=== PATIENT | male | born 2000 | race African-American/Black ===

== ENCOUNTER 2023-09-16 10:20 | Emergency (ER) | payer SELFPAY ==
[2023-09-16 10:37] VITALS: BP 122/66; PULSE 79; RESP 16; TEMP 37.3; O2SAT 98; BMI 26.6
--- NOTE | 2023-09-16 10:56 | ED_ITS ---
HPI - General Adult General Date Seen: 09/16/23 Chief complaint: Extremity Pain/Injury, Upper Stated complaint: RT wrist swelling Time Seen by Provider: 09/16/23 10:53 History of Present Illness HPI narrative: 23-year-old generally healthy male presenting to the ER today with right wrist redness and swelling. In review of medical record he was seen in the urgent care 6 days ago on 07/11/2023 with a left wrist sprain after he sprained his wrist playing soccer. He is otherwise healthy. No history of diabetes or immunosuppression. He is not currently sexually active and has not had sexual activity in over a year. His previous sexual activities with was with a faithful partner. He is has no concern for STD such as gonorrhea or HIV. He notes that five days ago, last Friday he started developing a small pimple on the skin of the radial border along his right wrist. It did get a little bit larger in began draining some purulent fluid that evening. It seemed to get better but was still slightly swollen but no longer draining the following day on Friday and again on Friday. Yesterday on Friday it began to get more swollen again it started draining some more pus. He started to have a low-grade fever. He has wrist feels a little bit achy but he is not having any trouble moving it any overnight developed swelling involving the dorsum of his hand and some discomfort radiating up to his elbow (but no redness or swelling of the proximal portion of the forearm or of the elbow. He he is concerned that he probably has a skin infection so came here to get started on antibiotics. He has no recent injury to his right wrist. No foreign body. No picking. No dog bites. No current sexual activity. No concern for STI. No diabetes or immunosuppression. Related Data Home Medications ?Medication ?Instructions ?Recorded ?Confirmed No Known Home Medications 07/11/23 07/11/23 Allergies Allergy/AdvReac Type Severity Reaction Status Date / Time No Known Drug Allergies Allergy Verified 07/11/23 13:44 [facility] Social History Smoking Status: Never smoker Do you use any of these nicotine containing products: None How often do you have a drink containing alcohol: never How often do you have six or more drinks on one occasion: Never AUDIT-C Alcohol total score: 0 Non-prescribed substance use: denies use Exam Narrative: Exam Narrative: Constitutional: Appears well-developed and well-nourished. Active. Non-toxic appearing. HENT: Head: Atraumatic. No signs of injury. Nose: No nasal discharge. Mouth/Throat: Mucous membranes are moist. Pharynx is normal. Tonsils symmetric. Uvula midline. Airway patent. Eyes: Conjunctivae normal and EOM are normal. Pupils are equal, round, and reactive to light. Right eye exhibits no discharge. Left eye exhibits no discharge. No icterus. Neck: Normal range of motion. Neck supple. No adenopathy. No stridor. Cardiovascular: Normal rate and regular rhythm. No murmur heard. No murmurs, rubs, or gallops. Brisk capillary refill Pulmonary/Chest: Effort normal. No stridor. No respiratory distress. No wheezes.No rhonchi. No rales. No retractions. Abdominal: Soft. Bowel sounds are normal. No distension. No mass. There is no tenderness. There is no rebound and no guarding. Musculoskeletal: Left upper extremity and bilateral lower extremities: Normal range of motion. No edema. No tenderness. No deformity. Right upper extremity: Shoulder, biceps, triceps, upper arm are normal. There is no palpable axillary adenopathy. No signs of redness or swelling or ascending lymphangitis in the upper arm or proximal forearm. Normal flexion and extension of the elbow. Normal pronation and supination of the wrist. He does have normal range of motion in the wrist. There is a visible area of swelling on the dorsal wrist and dorsal hand. Intact flexion and extension of MCP, PIP, DI P joints of the fingers as well as the thumb. Volar surface and palmar surface are normal. Inspection of the wrist reveals that he has a 2 cm area of soft tissue swelling and induration surrounding a small punctate 1 mm area that is draining a small amount of purulent fluid. When I carefully palpate the swollen area it feels indurated but there is no fluctuance. The open lesion is draining very small amounts of yellow/Jett cloudy serous fluid (but not francisco pus). I do not think there is any palpable fluctuance that would benefit from I&D. It appears that whatever fluid was in this pocket has already been draining through the lesion on the skin. Surrounding this there is a larger area of swollen tissue including the dorsum of the hand and the dorsum of the wrist. Neurological: Alert. Normal strength. No cranial nerve deficit or sensory deficit. Coordination normal. GCS eye subscore is 4. GCS verbal subscore is 5. GCS motor subscore is 6. Skin: Skin is warm. No rash noted. Const: Vital Signs, click to edit/add: Vital Signs - 24 hr 09/16/23 10:37 Temperature 99.1 F Pulse Rate [Pulse Oximeter] 79 Respiratory Rate 16 Blood Pressure [Ri ght Upper Arm] 122/66 Pulse Oximetry 98 Oxygen Delivery Me thod Room Air Course Vital Signs Vital signs: Initial Vital Signs Temperature 99.1 F 09/16/23 10:37 Temperature Source Temporal Artery Scan 09/16/23 10:37 Pulse Rate 79 09/16/23 10:37 Pulse Rhythm Regular 09/16/23 10:37 Respiratory Rate 16 09/16/23 10:37 Blood Pressure 122/66 09/16/23 10:37 Blood Pressure Mean 84 09/16/23 10:37 Blood Pressure Position Sitting 09/16/23 10:37 Pulse Oximetry 98 09/16/23 10:37 Oxygen Delivery Method Room Air 09/16/23 10:37 Vital Signs Temperature 99.1 F 09/16/23 10:37 Pulse Rate 79 09/16/23 10:37 Respiratory Rate 16 09/16/23 10:37 Blood Pressure 122/66 09/16/23 10:37 Pulse Oximetry 98 09/16/23 10:37 Oxygen Delivery Method Room Air 09/16/23 10:37 Temperature 99.1 F 09/16/23 10:37 Pulse Rate 79 09/16/23 10:37 Respiratory Rate 16 09/16/23 10:37 Blood Pressure 122/66 09/16/23 10:37 Pulse Oximetry 98 09/16/23 10:37 Oxygen Delivery Method Room Air 09/16/23 10:37 Medical Decision Making MDM Narrative Medical decision making narrative: This patient presents for evaluation of skin redness and swelling affecting the skin on the dorsum of his right wrist and hand. It actually began as a small pimple on the dorsal/radial aspect of the wrist 5 days ago which has been draining some cloudy serous/purulent fluid initially on Friday and again since yesterday. History and exam are consistent with what appears to be a cutaneous abscess and surrounding cellulitis. At this point I do not think there is any residual purulent fluid under the skin that would benefit from I and D at this time. It appears to already be draining. After sterile prep with chlorhexidine I was able to get a very small amount of the fluid onto a culture swab. We sent swab to the lab for wound culture. There do not appear at this time to be any complication of cellulitis including necrotizing fascitis, lymphangitis, lymphadenitis, osteomyelitis, sepsis, or shock. He since this is on the dorsal/radial wrist and hand differential would include septic arthritis. However he has very good range of motion in the wrist. At this point I think he is actually very low risk for septic arthritis and any attempt at joint aspiration would be risky because we would have to approach through the infected/cellulitic superficial skin. The patient is not immunosuppressed or diabetic. Differential would also include disseminated gonococcus and gonococcal arthritis but patient has no concern for STI. Therefore will hold off on STI testing for now. Supportive outpatient management is indicated with antibiotics. Will put him on double coverage with Bactrim and Keflex. I i nitially obtained wound culture swab and we sent it to the lab. Unfortunately I obtained a swab on the wrong collection device and the culture cannot be run. Before I discovered the error, the patient already been discharged. He does not currently have primary care. Referral given to follow-up with the [facility] (or return to the ER) if not improving within 2-3 days, or immediately if worsening. given precautions to return if high fever, spread greater than 2cm outside of the current area, worsening pain, vomiting or any other worsening. Questions answered and return precautions reviewed. Discharge Plan Discharge Clinical Impression: Abscess or cellulitis of wrist Patient Disposition: Home, Self-Care Condition: Stable Instructions: Cellulitis (ED) Additional Instructions: As we discussed, please come back to the ER home or to your nearest ER if you have worsening symptoms such as high fever over 100.4 F, worsening pain or swelling, pain moving your wrist, spreading redness, or any problems. If you are not dramatically improved by Friday, please follow-up with the [facility]. Call today [phone] to schedule a ER follow-up appointment. If you are better by Friday you can cancel your appointment. if you are not able to get into the ortho clinic for follow-up, you can come back to the ER. Prescriptions: No Action No Known Home Medications Follow Up/Referrals: Provider,Not a Local [Primary Care Provider] - Stand Alone Forms: [facility] Info Instructions
== END 2023-09-16 11:50 | disposition home or self-care (01) ==
LOC: ED 11:36
PROVIDERS: Emergency Provider Emergency Medicine
DX: L03.113 Cellulitis of right upper limb (principal)
CPT/HCPCS: 87070; 99283